=== PATIENT | male | born 1975 ===

== ENCOUNTER 2024-02-25 16:14 | Inpatient (IN) | payer OTHER ==
[2024-02-25 17:25] VITALS: BMI 33.7
[2024-02-25] MEDS ORDERED: methaDONE HCL 10 MG TABLET (FOR DETOX USE ONLY) PO PRN (17:38)
[2024-02-25] MEDS ORDERED: NALOXONE (NARCAN) HCL 4 MG/0.1 ML SPRAY NS PRN (17:40)
[2024-02-25] MEDS ORDERED: NICOTINE POLACRILEX 2 MG GUM BUC PRN (17:40)
[2024-02-25] MEDS ORDERED: MAG HYDROX/AL HYDROX/SIMETH 30 ML UNIT-DOSE CUP PO PRN (17:40)
[2024-02-25] MEDS ORDERED: ONDANSETRON *ODT* 4 MG TABLET SL PRN (17:40)
[2024-02-25] MEDS ORDERED: MAGNESIUM HYDROX 2400MG/30ML ORAL SUSPENSION 30 ML CUP PO PRN (17:40)
[2024-02-25] MEDS ORDERED: DICYCLOMINE HCL 10 MG CAPSULE PO PRN (17:40)
[2024-02-25] MEDS ORDERED: P-EPHED 60MG/TRIPROLIDI 2.5MG TABLET PO PRN (17:40)
[2024-02-25] MEDS ORDERED: BENZONATATE 200 MG CAPSULE PO PRN (17:40)
[2024-02-25] MEDS ORDERED: IBUPROFEN 400 MG TABLET (FP) PO PRN (17:40)
[2024-02-25] MEDS ORDERED: POLYETHYLENE GLYCOL (HEALTHYLAX) 3350 17 GM PACKET PO PRN (17:40)
[2024-02-25] MEDS ORDERED: ACETAMINOPHEN 325 MG TABLET (FP) PO PRN (17:40)
[2024-02-25] MEDS ORDERED: BENZOCAINE/MENTHOL (CHLORASEPTIC ) LOZENGE MM PRN (17:40)
[2024-02-25] MEDS ORDERED: NICOTINE POLACRILEX 2 MG LOZENGE BC PRN (17:40)
[2024-02-25] MEDS ORDERED: LOPERAMIDE HCL 2 MG CAPSULE PO PRN (17:40)
[2024-02-25] MEDS ORDERED: BISMUTH SUBSALICYLATE 524 MG/30 ML PO PRN (17:40)
[2024-02-25] MEDS ORDERED: guaiFENesin 600 MG TABLET.ER (FP) PO PRN (17:40)
[2024-02-25] MEDS ORDERED: methaDONE HCL 10 MG TABLET (FOR DETOX USE ONLY) ONE (21:04)
[2024-02-25] MEDS: methaDONE HCL 10 MG TABLET (FOR DETOX USE ONLY) PO ONE (21:07)
[2024-02-25] MEDS: MELATONIN 5 MG TABLETS PO SCH (21:33)
[2024-02-25] MEDS: THIAMINE 100 MG TABLET PO SCH (21:33)
[2024-02-26] MEDS: IBUPROFEN 600 MG TABLET (FP) PO PRN (00:53)
[2024-02-26] MEDS: PRENATAL VITAMINS W/ FOLIC ACID TABLET (FP) PO SCH (09:26)
[2024-02-26 11:34] LABS: BLOOD UREA NITROGEN 12.6 mg/dL (7-18); CALCIUM 9.1 mg/dL (8.5-10.1); HEMATOCRIT 38.9 % (35.4-49); MCH 28.5 pg (25.7-33.7); MCHC 33.6 g/dl (32.0-35.9); MEAN PLT VOLUME 8.6 fl (7.5-11.1); PLATELET COUNT 194 10^3/uL (134-434); RBC 4.57 M/mm3 (4.00-5.60); RDW 12.9 % (11.9-15.9); WHITE BLOOD COUNT 5.5 K/mm3 (4.0-10.0)
[2024-02-26 11:35] LABS: ALBUMIN 3.8 g/dl (3.4-5.0)
[2024-02-26 11:38] LABS: BILIRUBIN,TOTAL 1.1 mg/dL (0.2-1)
[2024-02-26 11:39] LABS: TOT PROT 7.2 g/dl (6.4-8.2)
[2024-02-26] MEDS: MIRTAZAPINE 15 MG TABLET (FP) PO SCH (22:11)
[2024-02-26] MEDS: OLANZapine 7.5 MG TABLET PO SCH (22:11)
[2024-02-26] MEDS: cloNIDine HCL 0.1 MG TABLET PO PRN (22:12)
[2024-02-27] MEDS: methaDONE HCL 10 MG TABLET (FOR DETOX USE ONLY) PO ONE (09:47)
[2024-02-27] MEDS: INSULIN ASPART SLIDING SCALE (NOVOLOG) 1 VIAL SQ SCH (16:38)
[2024-02-29] MEDS: methaDONE HCL 10 MG TABLET (FOR DETOX USE ONLY) PO ONE (09:11)
[2024-02-29] MEDS ORDERED: ALBUTEROL SO4 HFA INHALER IH PRN (10:55)
[2024-02-29] MEDS: ASPIRIN 81 MG CHEWABLE TABLETS PO SCH (11:24)
[2024-02-29] MEDS: GABAPENTIN 100 MG CAPSULE PO SCH (14:01)
[2024-02-29 21:37] VITALS: RESP 16
[2024-02-29] MEDS: ATORVASTATIN CA 40 MG TABLET (FP) PO SCH (21:39)
[2024-02-29] MEDS ORDERED: SUVOREXANT 10 MG TABLET PO PRN (22:00)
[2024-03-01] MEDS ORDERED: NALOXONE (NYS OPIOID OVERDOSE PROGRAM) 4 MG/0.1 ML SPRAY NS PRN (08:00)
[2024-03-01 08:54] VITALS: BP 116/81; PULSE 85; TEMP 97.7
== END 2024-03-01 10:04 | disposition home or self-care (01) | DRG 773 ==
LOC: YASAS 16:14 → Y3N 20:47
PROVIDERS: ADMIT Allergy & Immunology; ATTEND Allergy & Immunology
PROC: HZ2ZZZZ Detoxification Services for Substance Abuse Treatment (ICD-10-PCS; principal; 2024-02-25)
DX: F11.23 Opioid dependence with withdrawal (principal); F14.20 Cocaine dependence, uncomplicated; F17.210 Nicotine dependence, cigarettes, uncomplicated; F31.9 Bipolar disorder, unspecified; E11.9 Type 2 diabetes mellitus without complications; J45.909 Unspecified asthma, uncomplicated; K21.9 Gastro-esophageal reflux disease without esophagitis; M25.551 Pain in right hip; G89.29 Other chronic pain; Z99.89 Dependence on other enabling machines and devices
CPT/HCPCS: 36415; 80053; 80305; 80307; 82962; 85027; 86780; 93005; 93010